=== PATIENT | male | born 1995 | race African-American/Black ===

== ENCOUNTER 2021-04-11 16:57 | Emergency (ER) | payer MEDICAID, OTHER ==
[~2021-04-11] VITALS: Ht 170.2 cm; Wt 70.3 kg
[2021-04-11] MEDS ORDERED: METHOCARBAMOL 500 MG TAB PO ONE (19:45)
[2021-04-11] MEDS ORDERED: HYDROcodone-ACET 10/325MG TAB PO ONE (19:45)
[2021-04-11 20:24] VITALS: BP 113/64
== END 2021-04-11 20:36 | disposition home or self-care (01) ==
LOC: ER 16:57 → EDSEX 16:57 → EDBD 16:57 → ER 20:36
DX: S16.1XXA Strain of muscle, fascia and tendon at neck level, initial encounter (principal); S13.4XXA Sprain of ligaments of cervical spine, initial encounter; G44.319 Acute post-traumatic headache, not intractable; V43.52XA Car driver injured in collision with other type car in traffic accident, initial encounter; Y93.89 Activity, other specified; Y92.488 Other paved roadways as the place of occurrence of the external cause; Y99.8 Other external cause status
CPT/HCPCS: 70450; 70486; 72131